=== PATIENT | male | born 1940 | race Two or more races ===

== ENCOUNTER 2020-06-16 11:02 | Emergency (ER) | payer MEDICARE ==
--- NOTE | 2020-06-16 11:14 | ER Document Report ---
ED Medical Screen (RME) - General Chief Complaint: Lip Swelling Stated Complaint: SWOLLEN LIPS Time Seen by Provider: 06/16/20 11:09 Mode of Arrival: Ambulatory Information source: Patient Notes: 80-year-old male presents to ED for complaint of swelling of his bottom lip when he woke up. He states as the day has progressed his upper lip started swelling as well. He does not complain of any shortness of breath difficulty breathing difficulty speaking or difficulty swallowing. He states he does take losartan for blood pressure but does not take lisinopril. He states he did eat some eggs bread and coffee for breakfast and has not used anything else. He does have a history of coronary artery disease with NH. High cholesterol high blood pressure angioplasty and benign prostate hyperplasia. He does not smoke drink or use any drugs. He is alert oriented respirations regular nonlabored speaking in full sentences. He is here with his . I have greeted and performed a rapid initial assessment of this patient. A comprehensive ED assessment and evaluation of the patient, analysis of test results and completion of medical decision making process will be conducted by an additional ED providers. - Related Data Allergies/Adverse Reactions: No Known Allergies Allergy (Verified 06/16/20 11:14)
[2020-06-16] MEDS ORDERED: FAMOTIDINE INJ/PF 20 MG/2 ML SDV IV ONE (11:39)
[2020-06-16] MEDS ORDERED: METHYLPREDNISOLONE INJ 125 MG/2 ML SDV IV ONE (11:39)
[2020-06-16] MEDS ORDERED: DIPHENHYDRAMINE HCL 50 MG/ML VIAL IV ONE (11:39)
--- NOTE | 2020-06-16 11:41 | ER Document Report ---
ED General - General Chief Complaint: Lip Swelling Stated Complaint: SWOLLEN LIPS Time Seen by Provider: 06/16/20 11:09 Primary Care Provider: GLENDA DUNLAP PA-C [Primary Care Provider] - Follow up tomorrow CITLALI RAMOS MD [ACTIVE STAFF] - Follow up as needed Mode of Arrival: Ambulatory - [facility] Notes: 8-year-old male with a history of hypertension and BPH presents to the emergency room for lower and upper lip swelling that noticed 8:00 this morning when he woke up. Denies any new medications foods or travel but reports they did move into a new house last night. Patient states that he takes losartan and tamsulosin for "years. Denies any chest pain shortness of breath, stridor, drooling, difficulty breathing difficulty swallowing, tongue swelling, headache, blurred vision double vision loss of vision, nausea vomiting, fevers, chills,palpitations, dyspnea, diarrhea, abdominal pain, hematuria, speech changes, LH, dizziness, syncope, headaches, wheezing, ST, URI, neck pain, weakness, bowel or bladder dysfunction, saddle anesthesia, numbness or tingling in bilateral upper or lower extremities equally, muscle paralysis, weakness in bilateral upper or lower extremities equally or rash. Denies IV drug use. MEDICATIONS: I agree with the patient medications as charted by the RN. ALLERGIES: I agree with the allergies as charted by the RN. PAST MEDICAL HISTORY/PAST SURGICAL HISTORY: Reviewed and agree as charted by RN. SOCIAL HISTORY: Reviewed and agree as charted by RN. FAMILY HISTORY: No significant familial comorbid conditions directly related to patient complaint EXAM: Reviewed vital signs as charted by RN. REVIEW OF SYSTEMS:reviewed vital signs by RN CONSTITUTIONAL : Denies fever, chills, or sweats. Denies recent illness. EENT: Reports swelling of bottom lip. denies eye, ear, throat, or mouth pain or symptoms. Denies nasal or sinus congestion or discharge. Denies throat, tongue, or mouth swelling or difficulty swallowing. CARDIOVASCULAR: Denies chest pain. Denies palpitations or racing or irregular heart beat. Denies ankle edema. RESPIRATORY: Denies cough, cold, or chest congestion. Denies shortness of breath, difficulty breathing, or wheezing. GASTROINTESTINAL: Denies abdominal pain or distention. Denies nausea, vomiting, or diarrhea. Denies blood in vomitus, stools, or per rectum. Denies black, tarry stools. Denies constipation. GENITOURINARY: Denies difficulty urinating, painful urination, burning, fr equency, blood in urine, or discharge. MUSCULOSKELETAL: Denies back or neck pain or stiffness. Denies joint pain or swelling. SKIN: Denies rash, lesions or sores. HEMATOLOGIC : Denies easy bruising or bleeding. LYMPHATIC: Denies swollen, enlarged glands. NEUROLOGICAL: Denies confusion or altered mental status. Denies passing out or loss of consciousness. Denies dizziness or lightheadedness. Denies headache. Denies weakness or paralysis or loss of use of either side. Denies problems with gait or speech. Denies sensory loss, numbness, or tingling. Denies seizures. PSYCHIATRIC: Denies anxiety or stress. Denies depression, suicidal ideation, or homicidal ideation. ALL OTHER SYSTEMS REVIEWED AND NEGATIVE. Dictation was performed using [employer] voice recognition software PHYSICAL EXAMINATION: GENERAL: Well-appearing, well-nourished and in no acute distress. HEAD: Atraumatic, normocephalic. EYES: Pupils equal round and reactive to light, extraocular movements intact, sclera anicteric, conjunctiva are normal. ENT: Nares patent, oropharynx clear without exudates. Moist mucous membranes. Noted slight swelling of lower lip. Uvula midline. Tongue without any edema. No drooling, no trismus NECK: Normal range of motion, supple without lymphadenopathy LUNGS: Breath sounds clear to auscultation bilaterally and equal. No wheezes rales or rhonchi. No stridor HEART: Regular rate and rhythm without murmurs ABDOMEN: Soft, nontender, nondistended abdomen. No guarding, no rebound. No masses appreciated. Musculoskeletal: Normal range of motion, no pitting or edema. No cyanosis. NEUROLOGICAL: Cranial nerves grossly intact. Normal speech, normal gait. Nadine l sensory, motor exams. PERRLA, EOMI. Full motor and sensory function throughout. 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 Tongue midline. No pronator drift. No ataxia. Neck with APROM. Raises eyebrows. Strength is 5 out of 5 in bilateral upper and lower extremities equally.Speaks in full sentences. No weakness on one side. Romberg gait steady able to walk straight line. PSYCH: Normal mood, normal affect. SKIN: Warm, Dry, normal turgor, no rashes or lesions noted. - Related Data Allergies/Adverse Reactions: No Known Allergies Allergy (Verified 06/16/20 11:14) Home Medications: losartan. finasteride. atorvastatin. tamulosin. aspirin. usodiario Past Medical History - General Information source: Patient - Social History Smoking Status: Never Smoker Chew tobacco use (# tins/day): No Frequency of alcohol use: None Drug Abuse: None Family History: Reviewed & Not Pertinent Physical Exam - Vital signs Vitals: Temp Pulse Resp BP Pulse Ox 97.8 F 79 18 151/88 H 94 06/16/20 11:09 06/16/20 11:09 06/16/20 11:09 06/16/20 11:09 06/16/20 11:09 Course - Re-evaluation Re-evalutation: 06/16/20 16:15 Afebrile vital stable no distress. Nurses notes reviewed. In triage the APC ordered a CBC CMP chest x-ray, as well as a urinalysis. CBC negative for lea kocytosis or anemia, CMP negative for hepatic or renal dysfunction electrolyte disorders, urinalysis shows small leuk esterase but likely this was a dirty sample. Patient chest x-ray was unremarkable, no tension pneumothorax stridor, pneumonia. Patient given 125 Solu-Medrol IVP, Benadryl 50 mg IVP and famotidine 20mg IVP. On reevaluation an hour later, patient's swelling had gone down significantly. Discussed discussed with patient and his that we will send him home on prednisone, Benadryl as well as pepcid to follow-up with his primary care provider. Likely there is an offending agent in his new house that caused the swelling around his lower lips. I do not think this was related to the losartan as patient has been on this medication for over 2 years. Patient and partner were agreeable this plan of care and agree with plan of care. Advised to return to the emergency room if there is any changes such as shortness of breath, difficulty breathing, returning swelling around his lips, angioedema etc.After performing a Medical Screening Examination, I estimate there is LOW r isk for AIRWAY COMPROMISE, ANAPHYLAXIS, CELLULITIS, EPIGLOTTIS, or NECROTIZING FASCIITIS, thus I consider the discharge disposition reasonable. Also, there is no evidence or peritonitis, sepsis, or toxicity. I have reevaluated this patient multiple times and no significant life threatening changes are noted. The patient and I have discussed the diagnosis and risks, and we agree with discharging home with close follow-up with the understanding that symptoms and presentations can change. We also discussed returning to the Emergency Department immediately if new or worsening symptoms occur. We have discussed the symptoms which are most concerning (e.g., difficulty breathing or swallowing, fever, changing or worsening pain) that necessitate immediate return. - Vital Signs Vital signs: Temp Pulse Resp BP Pulse Ox 97.8 F 79 18 151/88 H 94 06/16/20 11:09 06/16/20 11:09 06/16/20 11:09 06/16/20 11:09 06/16/20 11:09 - Laboratory Result Diagrams: 06/16/20 11:28 06/16/20 11:28 Laboratory results interpreted by me: 06/16/20 06/16/20 06/16/20 11:28 11:28 11:28 RBC 4.03 L Hgb 13.3 L BUN 24 H Total Bilirubin 1.5 H Ur Leukocyte Esterase SMALL H Discharge - Discharge Clinical Impression: Allergic reaction Condition: Stable Disposition: HOME, SELF-CARE Additional Instructions: Acute Allergic Reaction Your symptoms are due to an allergic reaction. Allergy can cause hives, swe lling of the hands, feet, and face, hoarseness, and difficulty swallowing or breathing. It may be due to exposure to medication, animal dander, foods, infection, or insect bites. Medication is a common cause, even when prior use of this same medication caused no problems. Acute treatment may include adrenalin and antihistamines. Usually, the specific allergic agent can't be identified unless repeated episodes occur. Home treatment includes the following: (1) Stop any suspicious medications. This will be discussed with you. (2) Oral antihistamines for the next four to five days. Example, diphenhydramine (Benadryl) every four hours. (3) You may also use cimetidine (Tagamet), or famotidine (Pepcid) every four hours if diphenhydramine is not controlling itching and hives. (4) Avoid aspirin until the hives completely disappear. (5) Avoid hot baths or showers until the hives are completely gone. Call the doctor if faintness, difficulty swallowing, tightness in the chest, or wheezing occurs. Please follow-up with your primary care provider within the next 24 to 48 hours. Please take medications as directed. Avoid any allergens or offending agents. Return immediately for any new or worsening symptoms. Follow up with primary care provider, call tomorrow to make followup appointment. Prescriptions: Diphenhydramine HCl [Benadryl Allergy] 50 mg PO TIDP PRN #30 tablet PRN Reason: Prednisone [Deltasone 20 mg Tablet] 3 tab PO DAILY 5 Days #15 tablet Famotidine [Pepcid 20 mg Tablet] 20 mg PO DAILY #12 tablet Referrals: GLENDA DUNLAP PA-C [Primary Care Provider] - Follow up tomorrow CITLALI RAMOS MD [ACTIVE STAFF] - Follow up as needed
[2020-06-16 11:44] LABS: ABSOLUTE EOSINOPHILS # (AUTO) 0.1 10^3/uL (0.0-0.6); ABSOLUTE LYMPHOCYTES (AUTO) 1.7 10^3/uL (0.5-4.7); ABSOLUTE MONOCYTES (AUTO) 0.7 10^3/uL (0.1-1.4); BASOPHILS % (AUTO) 0.2 % (0-2); EOSINOPHILS % (AUTO) 1.3 % (0-6); HEMATOCRIT 38.2 % (37.9-51.0); HEMOGLOBIN 13.3 g/dL (13.5-17.0); MEAN CORPUSCULAR HEMOGLOBIN 32.9 pg (27.0-33.4); MEAN CORPUSCULAR HGB CONC 34.7 g/dL (32.0-36.0); MEAN CORPUSCULAR VOLUME 95 fl (80-97); MONOCYTES % (AUTO) 10.4 % (3-13); PLATELET COUNT 274 10^3/uL (150-450); RED BLOOD COUNT 4.03 10^6/uL (4.35-5.55); RED CELL DISTRIBUTION WIDTH 13.6 % (11.5-14.0); SEGMENTED NEUTROPHILS % (AUTO) 62.1 % (42-78); TOTAL CELLS COUNTED % (AUTO) 100 %; WHITE BLOOD COUNT 6.4 10^3/uL (4.0-10.5)
[2020-06-16 11:55] LABS: APPEARANCE,URINE SLIGHTLY-CLOUDY; BILIRUBIN,URINE NEGATIVE (NEGATIVE); COLOR,URINE YELLOW; GLUCOSE, URINE NEGATIVE (NEGATIVE); KETONES,URINE NEGATIVE (NEGATIVE); LEUKOCYTE ESTERASE,URINE SMALL (NEGATIVE); NITRITE,URINE NEGATIVE (NEGATIVE); PROTEIN,URINE NEGATIVE (NEGATIVE); URINE SPECIFIC GRAVITY 1.024; UROBILINOGEN,URINE NEGATIVE mg/dL (<2.0)
[2020-06-16 11:59] LABS: ALBUMIN 4.5 g/dL (3.5-5.0); ALKALINE PHOSPHATASE 76 U/L (38-126); ANION GAP 11 (5-19); ASPARTATE AMINO TRANSFERASE 36 U/L (17-59); BILIRUBIN,DIRECT 0.3 mg/dL (0.0-0.4); BILIRUBIN,TOTAL 1.5 mg/dL (0.2-1.3); BLOOD UREA NITROGEN 24 mg/dL (7-20); CALCIUM 9.7 mg/dL (8.4-10.2); CARBON DIOXIDE 25 mmol/L (22-30); CHLORIDE 105 mmol/L (98-107); CREATINE KINASE 124 U/L (55-170); GLUCOSE 109 mg/dL (75-110); POTASSIUM 4.3 mmol/L (3.6-5.0)
--- NOTE | 2020-06-16 12:58 | RADIOLOGY REPORT (SQ) ---
EXAM DESCRIPTION: CHEST 2 VIEWS IMAGES COMPLETED DATE/TIME: 06/16/2020 11:25 am REASON FOR STUDY: Angioedema COMPARISON: None. EXAM PARAMETERS: NUMBER OF VIEWS: two views TECHNIQUE: Digital Frontal and Lateral radiographic views of the chest acquired. RADIATION DOSE: NA LIMITATIONS: none FINDINGS: LUNGS AND PLEURA: No opacities, masses or pneumothorax. No pleural effusion. MEDIASTINUM AND HILAR STRUCTURES: No masses or contour abnormalities. HEART AND VASCULAR STRUCTURES: Heart normal size. No evidence for failure. BONES: No acute findings. HARDWARE: None in the chest. OTHER: No other significant finding. IMPRESSION: NO ACUTE RADIOGRAPHIC FINDING IN THE CHEST. TECHNICAL DOCUMENTATION: JOB ID: [id number] 2010 [employer]- All Rights Reserved Reading location - IP/workstation name: [email or web address]
[2020-06-16 14:40] VITALS: BP 133/79
== END 2020-06-16 14:40 | disposition home or self-care (01) ==
LOC: ER 11:02
DX: T78.40XA Allergy, unspecified, initial encounter (principal); R22.0 Localized swelling, mass and lump, head; X58.XXXA Exposure to other specified factors, initial encounter; I10 Essential (primary) hypertension; N40.0 Benign prostatic hyperplasia without lower urinary tract symptoms; Z79.899 Other long term (current) drug therapy; Z79.82 Long term (current) use of aspirin
CPT/HCPCS: 99284; 96374; 96375; 36415; 87086; 82550; 83690; 85025; 80053; 81001; 71046; J1200; J2930; S0028